=== PATIENT | male | born 1950 | race Hispanic/Latino ===

== ENCOUNTER → 2025-03-29 | Outpatient (CLI) | payer OTHER ==
--- NOTE | 2025-03-29 12:13 | HMCIMG ---
US VENOUS DOPPLER BILATERAL REASON: Localized edema COMPARISON: None Technique: Bilateral venous doppler ultrasound was performed with spectral analysis and color flow imaging technique. FINDINGS: There is a normal appearance of the common femoral, deep femoral, the profunda femoris and popliteal veins. Proximal calf veins appear normal as well. There is normal response to compression and augmentation. There is no evidence of deep venous thrombosis. IMPRESSION: Normal bilateral lower extremity venous Doppler ultrasound.
== END | disposition home or self-care (01) ==
LOC: RAH 11:14
PROVIDERS: ATTEND Internal Medicine Critical Care Medicine
DX: R60.0 Localized edema (principal)
CPT/HCPCS: 93970